=== PATIENT | male | born 1970 ===

== ENCOUNTER 2017-01-11 07:39 | Outpatient (CLI) | payer BC ==
--- NOTE | 2017-01-18 09:59 | SLS ---
This patient has obstructive sleep apnea, moderate in severity, with an AHI of 18.9, worse in a supine body position. He has also demonstrated nocturnal oxygen desaturation secondary to obstructive sleep apnea and evident on his home sleep study. He suffers from chronic hypersomnia. The patient was also noted to have a component of insufficient sleep syndrome. He is obese. He was asked to come into the sleep center to undergo CPAP titration. PERTINENT PHYSICAL FINDINGS: His height is 5 feet 10 inches. Weight is 210. BMI is 29.7. TECHNICAL DESCRIPTION: The sleep evaluation of the patient consisted of clinical polysomnography, nocturnal respiratory battery, left and right anterior tibialis surface electromyography. The standard montage for the clinical polysomnography included the EEG, EOG, EMG, and EKG. Respiratory battery included measurements of nasal buccal airflow, thoracic and/or abdominal effort and intercostal surface EMG. Nocturnal oxyhemoglobin saturations were obtained by finger oximetry. Digital video and audio monitoring were done throughout the entire night to check for parasomnias. Step-guzman titration with positive airway pressure was utilized during the study to control the respiratory events. Study overview: Total time in bed 6 hours. Total sleep time was 4 hours and 34 minutes. Sleep efficiency was 76.1%. Latency to sleep onset is 10 minutes. Latency to first REM sleep is 96 minutes. The sleep architecture was characterized by 9.8% stage I, 61.6% stage II, 4.7% stage III, 23.9% REM sleep. SLEEP CONTINUITY SUMMARY: Total of 39 arousals with an arousal index of 8.5. CPAP titration summary: The patient was started at CPAP pressure of 4 cm of water and immediately the pressure was increased and the patient was started on the various CPAP pressures including pressures of 5, 6, 7, 8 and 9 cm of water. After careful review, the patient was decided to be treated with a pressure of 7 cm of water. At that level of pressure, the patient was supine and he was measured in REM and non-REM sleep. OXYGENATION ANALYSIS: No major desaturations were encountered during this titration and titration was successful in maintaining his saturation above 90%. CARDIAC SUMMARY: Average heart rate was 48. Minimum heart was 40, maximum heart rate was 68. Rhythm was sinus. Limb movement summary: No periodic limb movements were encountered. IMPRESSION: 1. Obstructive sleep apnea, moderate in severity, with an AHI of 18.9 along with nocturnal oxygen desaturation. The patient underwent a successful CPAP titration. 2. Hypersomnia. 3. Obesity. PLAN: 1. Encourage weight loss. 2. Proceed with CPAP at a pressure of 7 cm of water with C-Flex of 3 and utilize a medium-sized AirFit F10 fullface mask. 3. Implement good sleep hygiene measures. 4. See me back in 30 to 90 days to assess clinical response and compliance.
== END 2017-01-11 16:25 | disposition home or self-care (01) ==
LOC: SLEEP 07:39
PROVIDERS: ATTEND Internal Medicine Critical Care Medicine
DX: G47.33 Obstructive sleep apnea (adult) (pediatric) (principal); G47.10 Hypersomnia, unspecified; E66.9 Obesity, unspecified; Z68.29 Body mass index [BMI] 29.0-29.9, adult
CPT/HCPCS: 95811

== ENCOUNTER → 2017-03-21 | Outpatient (CLI) | payer BC ==
--- NOTE | 2017-03-21 17:26 | PN ---
47-year-old male patient coming in for a CPAP compliancy check. He was recently diagnosed having obstructive sleep apnea with an AHI of 18 and currently the patient on a CPAP pressure of 7 cm of water. He is averaging around 6.9 hours of CPAP use every night. His CPAP use for more than 4 hours is 27 out of 30. His AHI while on treatment was down to 0.7. The patient is using a DreamWare nose mask and leak factor is only 6 L/min. The patient is benefiting from the treatment. He is waking up alert and awake during the day. He is coming to the treatment, knowing that he has seen significant benefit. BP is 130/75, pulse 64, respiratory rate 16, temperature 98.2, saturation 99% on room air. Weight is 208. GENERAL APPEARANCE: Calm, comfortable. HEENT: Crowding of the posterior pharynx. There is no goiter, neck masses. Mallampati class IV. LUNGS: Clear to auscultation. HEART: Sounds are regular rate and rhythm. Normal S1 and S2. No murmurs. ABDOMEN: Soft, nontender. No organomegaly. EXTREMITIES: No edema. No cyanosis or clubbing. IMPRESSIONS: 1. Obstructive sleep apnea with an AHI of 18.9, currently on CPAP at a pressure of 9 cm of water with successful clinical response and compliance. 2. Hypersomnia, improving. 3. Obesity. PLAN: 1. Encourage weight loss. 2. Continue CPAP at the same level of pressure, which is 7 cm of water and the patient is using a DreamWare nose pillow. 3. Good sleep hygiene measures. 4. Hypersomnolence improved with an [place] score is down to 5. 5. Maintain good sleep hygiene and see me back as needed or come back in a few years' for re-evaluation.
== END ==
LOC: SLEEP 13:09
PROVIDERS: ATTEND Internal Medicine Critical Care Medicine
DX: G47.33 Obstructive sleep apnea (adult) (pediatric) (principal); G47.10 Hypersomnia, unspecified; E66.9 Obesity, unspecified